=== PATIENT | male | born 1950 | race Caucasian/White ===

== ENCOUNTER 2024-05-12 06:47 | Inpatient (IN) | payer OTHER ==
[2024-05-12 07:53] LABS: #Basophils 0.03 10x3/uL (0.0-0.2); %Basophils 0.4 % (0.0-1.0); %Eosinophils 2.8 % (0.0-10.0); %Monocytes 8.4 % (0.0-10.0); %Neutrophils 75.1 % (42.0-75.0); Hematocrit 36.2 % (42.0-52.0); Hemoglobin 11.7 g/dL (14.0-18.0); Mean Corpuscular HGB CONC 32.3 g/dL (32.0-36.0); Mean Corpuscular Hemoglobin 33.4 pg (27.0-31.0); Mean Corpuscular Volume 103.4 fL (78.0-98.0); Mean Platelet Volume 9.6 fL (7.4-10.4); Platelet Count 140 10x3/uL (130-400)
[2024-05-12 08:12] LABS: ALT (SGPT) 48 U/L (8-55); AST (SGOT) 32 U/L (5-34); Albumin 3.3 g/dL (3.4-4.8); Alkaline Phosphatase 66 U/L (40-110); Anion Gap 10 mmol/L (10-20); BUN (Urea Nitrogen) 19 mg/dL (8.4-25.7); Bilirubin, Total 1.6 mg/dL (0.2-1.2); Calc. Creatinine Clearance 0 mL/min (70-130); Calcium 8.8 mg/dL (7.8-10.44); Carbon Dioxide 24 mmol/L (23-31); Chloride 116 mmol/L (98-107); Estimated GFR 90; Globulin 3.1 g/dL (2.4-3.5); Glucose 138 mg/dL (83-110); Potassium 4.6 mmol/L (3.5-5.1); Protein, Total 6.4 g/dL (5.8-8.1); Sodium 145 mmol/L (136-145)
[2024-05-12 08:16] LABS: Troponin I 0.014 ng/mL (< 0.028)
[2024-05-12] MEDS ORDERED: Cefepime 2 GM VIAL ONE (11:01)
[2024-05-12] MEDS ORDERED: Sodium Chloride 0.9% 100 ML ONE (11:01)
[2024-05-12 11:43] LABS: Troponin I Less than 0.010 ng/mL (< 0.028)
[2024-05-12] MEDS ORDERED: Ondansetron PF 4 MG/2 ML Vial IVP PRN (12:04)
[2024-05-12] MEDS ORDERED: Acetaminophen 325 MG TAB PO PRN (12:04)
[2024-05-12] MEDS ORDERED: LevoFLOXacin D5W 500 mg (100 mL) BAG ONE (12:52)
[2024-05-12 13:12] VITALS: BMI 31.2
[2024-05-12] MEDS ORDERED: Azithromycin 500 MG VIAL ONE (14:53)
[2024-05-12] MEDS ORDERED: Furosemide 40 MG (4 mL) VIAL ONE (14:54)
[2024-05-12] MEDS ORDERED: Heparin 5,000 UNITS/ML VIAL SC SCH (15:00)
[2024-05-12] MEDS: Azithromycin 500 MG in Sodium Chloride 0.9% 250 ML 250 ML IVPB SCH (16:00)
[2024-05-12] MEDS: Furosemide 40 MG (4 mL) VIAL SLOW IVP SCH (16:00)
[2024-05-12 16:38] LABS: Troponin I 0.023 ng/mL (< 0.028)
[2024-05-12] MEDS: Metoprolol Tartrate 25 MG TAB PO SCH (20:37)
[2024-05-12] MEDS: Apixaban 5 MG TAB PO SCH (20:37)
[2024-05-12] MEDS: cefTRIAXone\\ROCEPHIN 1 GM in Sodium Chloride 0.9% 100 ML IVPB SCH (23:30)
[2024-05-13 04:26] LABS: #Basophils 0.03 10x3/uL (0.0-0.2); %Basophils 0.4 % (0.0-1.0); %Eosinophils 2.4 % (0.0-10.0); %Lymphocytes 15.5 % (21.0-51.0); %Monocytes 10.8 % (0.0-10.0); %Neutrophils 70.5 % (42.0-75.0); Hematocrit 34.4 % (42.0-52.0); Hemoglobin 11.5 g/dL (14.0-18.0); Mean Corpuscular HGB CONC 33.4 g/dL (32.0-36.0); Mean Corpuscular Hemoglobin 33.5 pg (27.0-31.0); Mean Corpuscular Volume 100.3 fL (78.0-98.0); Mean Platelet Volume 9.5 fL (7.4-10.4); Platelet Count 143 10x3/uL (130-400); RBC Distribution Width 13.8 % (11.5-14.5); Red Blood Cell (RBC) Count 3.43 mill/uL (4.70-6.10)
[2024-05-13 04:55] LABS: Anion Gap 10 mmol/L (10-20); BUN (Urea Nitrogen) 16 mg/dL (8.4-25.7); Calc. Creatinine Clearance 105 mL/min (70-130); Calcium 8.8 mg/dL (7.8-10.44); Carbon Dioxide 26 mmol/L (23-31); Chloride 110 mmol/L (98-107); Estimated GFR 92; Glucose 112 mg/dL (83-110); Potassium 3.5 mmol/L (3.5-5.1); Sodium 142 mmol/L (136-145)
[2024-05-13 10:55] VITALS: BMI 31.1
[2024-05-13] MEDS: Timolol 0.5% Ophth Soln 5 ml Bottle FS SCH (22:10)
[2024-05-14 05:00] LABS: #Basophils 0.04 10x3/uL (0.0-0.2); %Basophils 0.6 % (0.0-1.0); %Eosinophils 4.3 % (0.0-10.0); %Lymphocytes 16.1 % (21.0-51.0); %Monocytes 10.5 % (0.0-10.0); %Neutrophils 68.1 % (42.0-75.0); Hemoglobin 11.8 g/dL (14.0-18.0); Mean Corpuscular HGB CONC 32.8 g/dL (32.0-36.0); Mean Corpuscular Hemoglobin 33.5 pg (27.0-31.0); Mean Corpuscular Volume 102.3 fL (78.0-98.0); Mean Platelet Volume 9.4 fL (7.4-10.4); Platelet Count 146 10x3/uL (130-400); RBC Distribution Width 13.6 % (11.5-14.5); Red Blood Cell (RBC) Count 3.52 mill/uL (4.70-6.10)
[2024-05-14 05:22] LABS: Anion Gap 12 mmol/L (10-20); BUN (Urea Nitrogen) 17 mg/dL (8.4-25.7); Calc. Creatinine Clearance 106 mL/min (70-130); Calcium 8.9 mg/dL (7.8-10.44); Carbon Dioxide 26 mmol/L (23-31); Chloride 107 mmol/L (98-107); Estimated GFR 92; Glucose 99 mg/dL (83-110); Potassium 3.3 mmol/L (3.5-5.1); Sodium 142 mmol/L (136-145)
[2024-05-14] MEDS: Timolol 0.5% Ophth Soln 5 ml Bottle FS SCH (08:52)
[2024-05-15 04:50] LABS: #Basophils 0.05 10x3/uL (0.0-0.2); %Basophils 0.8 % (0.0-1.0); %Eosinophils 6.6 % (0.0-10.0); %Lymphocytes 23.7 % (21.0-51.0); %Monocytes 11.6 % (0.0-10.0); %Neutrophils 56.8 % (42.0-75.0); Hematocrit 36.8 % (42.0-52.0); Mean Corpuscular HGB CONC 32.6 g/dL (32.0-36.0); Mean Corpuscular Hemoglobin 33.1 pg (27.0-31.0); Mean Corpuscular Volume 101.7 fL (78.0-98.0); Mean Platelet Volume 9.2 fL (7.4-10.4); Platelet Count 159 10x3/uL (130-400); RBC Distribution Width 13.4 % (11.5-14.5); Red Blood Cell (RBC) Count 3.62 mill/uL (4.70-6.10)
[2024-05-15 05:08] LABS: Anion Gap 10 mmol/L (10-20); BUN (Urea Nitrogen) 17 mg/dL (8.4-25.7); Calc. Creatinine Clearance 99 mL/min (70-130); Calcium 8.7 mg/dL (7.8-10.44); Carbon Dioxide 30 mmol/L (23-31); Chloride 107 mmol/L (98-107); Estimated GFR 91; Glucose 104 mg/dL (83-110); Potassium 3.2 mmol/L (3.5-5.1); Sodium 144 mmol/L (136-145)
[2024-05-15] MEDS: Azithromycin 250 MG in Syringe 0 ML IVPB SCH (11:29)
[2024-05-15] MEDS: Azithromycin 250 MG in Sodium Chloride 0.9% 250 ML 250 ML IVPB SCH (12:04)
[2024-05-15] MEDS: cefTRIAXone\\ROCEPHIN 1 GM in Sodium Chloride 0.9% 100 ML IVPB SCH (13:18)
[2024-05-16 05:43] LABS: #Basophils 0.06 10x3/uL (0.0-0.2); %Basophils 0.8 % (0.0-1.0); %Eosinophils 5.5 % (0.0-10.0); %Lymphocytes 18.6 % (21.0-51.0); %Monocytes 10.8 % (0.0-10.0); Hematocrit 40.4 % (42.0-52.0); Hemoglobin 13.3 g/dL (14.0-18.0); Mean Corpuscular HGB CONC 32.9 g/dL (32.0-36.0); Mean Corpuscular Hemoglobin 33.2 pg (27.0-31.0); Mean Corpuscular Volume 100.7 fL (78.0-98.0); Mean Platelet Volume 9.5 fL (7.4-10.4); Platelet Count 181 10x3/uL (130-400); RBC Distribution Width 13.1 % (11.5-14.5); Red Blood Cell (RBC) Count 4.01 mill/uL (4.70-6.10)
[2024-05-16 06:01] LABS: Anion Gap 11 mmol/L (10-20); BUN (Urea Nitrogen) 17 mg/dL (8.4-25.7); Calc. Creatinine Clearance 103 mL/min (70-130); Calcium 9.1 mg/dL (7.8-10.44); Carbon Dioxide 28 mmol/L (23-31); Chloride 106 mmol/L (98-107); Estimated GFR 93; Glucose 96 mg/dL (83-110); Potassium 3.4 mmol/L (3.5-5.1); Sodium 142 mmol/L (136-145)
[2024-05-16] MEDS: Azithromycin 250 MG in Sodium Chloride 0.9% 250 ML 250 ML IVPB SCH (09:10)
[2024-05-16] MEDS: cefTRIAXone\\ROCEPHIN 1 GM in Sodium Chloride 0.9% 100 ML IVPB SCH (09:10)
[2024-05-16] MEDS: Potassium Chloride 20 MEQ TAB PO SCH (14:51)
[2024-05-17 05:09] LABS: Anion Gap 11 mmol/L (10-20); BUN (Urea Nitrogen) 20 mg/dL (8.4-25.7); Calc. Creatinine Clearance 86 mL/min (70-130); Carbon Dioxide 30 mmol/L (23-31); Chloride 106 mmol/L (98-107); Estimated GFR 84; Glucose 143 mg/dL (83-110); Potassium 3.5 mmol/L (3.5-5.1); Sodium 143 mmol/L (136-145)
[2024-05-17] MEDS ORDERED: Azithromycin 250 MG in Syringe 0 ML IVPB SCH (09:00)
[2024-05-17] MEDS: Azithromycin 250 MG, Admixture Fee 1 EACH in Sodium Chloride 0.9% 250 ML 250 ML IVPB SCH (10:05)
[2024-05-18 05:55] LABS: Anion Gap 11 mmol/L (10-20); BUN (Urea Nitrogen) 18 mg/dL (8.4-25.7); Calc. Creatinine Clearance 97 mL/min (70-130); Calcium 9.1 mg/dL (7.8-10.44); Carbon Dioxide 31 mmol/L (23-31); Chloride 107 mmol/L (98-107); Estimated GFR 92; Glucose 108 mg/dL (83-110); Potassium 3.5 mmol/L (3.5-5.1); Sodium 145 mmol/L (136-145)
[2024-05-18] MEDS: Azithromycin 250 MG TAB PO SCH (12:24)
[2024-05-18 15:41] VITALS: BP 125/60; TEMP 98.5
[2024-05-19] MEDS ORDERED: Furosemide 40 MG TAB PO SCH (07:30)
== END 2024-05-18 18:00 | disposition home or self-care (01) | DRG 193 ==
LOC: ERS 06:47 → EEVIPCON 06:47 → 2NO 10:30 → ERHOLD 10:32 → 2NO 19:14
PROVIDERS: ADMIT Internal Medicine; ATTEND Internal Medicine
DX: J18.9 Pneumonia, unspecified organism (principal); J96.01 Acute respiratory failure with hypoxia; I25.10 Atherosclerotic heart disease of native coronary artery without angina pectoris; I48.91 Unspecified atrial fibrillation; I50.9 Heart failure, unspecified; J44.9 Chronic obstructive pulmonary disease, unspecified; G47.33 Obstructive sleep apnea (adult) (pediatric); Z95.1 Presence of aortocoronary bypass graft
CPT/HCPCS: 36415; 36416; 71045; 80048; 80053; 83880; 84484; 85025; 87040; 93005; 93306; 96365; 96366; 96375; J0456; J0692; J0696; J1940; J1956; J7050

== ENCOUNTER 2024-06-01 10:22 | Inpatient (IN) | payer OTHER ==
[2024-06-01] MEDS ORDERED: Metoprolol Tartrate 5 MG (5 mL) VIAL ONE (10:46)
[2024-06-01 11:25] LABS: ALT (SGPT) 28 U/L (8-55); AST (SGOT) 25 U/L (5-34); Albumin 3.6 g/dL (3.4-4.8); Alkaline Phosphatase 70 U/L (40-110); Anion Gap 11 mmol/L (10-20); BUN (Urea Nitrogen) 16 mg/dL (8.4-25.7); Bilirubin, Total 1.4 mg/dL (0.2-1.2); Calc. Creatinine Clearance 0 mL/min (70-130); Calcium 9.1 mg/dL (7.8-10.44); Carbon Dioxide 27 mmol/L (23-31); Chloride 110 mmol/L (98-107); Estimated GFR 91; Globulin 2.9 g/dL (2.4-3.5); Glucose 80 mg/dL (83-110); Potassium 3.9 mmol/L (3.5-5.1); Protein, Total 6.5 g/dL (5.8-8.1); Sodium 144 mmol/L (136-145)
[2024-06-01 11:26] LABS: Bacteria/HPF None Seen HPF (None Seen); Bilirubin Negative (Negative); Blood, Urine Negative (Negative); CAUTI Indications for Culture Dysuria,urgency,freq; Clarity Clear (Clear); Glucose, Urine (Dipstick) Normal (Negative); Ketone, Urine Negative (Negative); Leukocyte 25 Leu/uL (Negative); Nitrite Negative (Negative); Protein, Urine (Dipstick) Negative (Neg-Trace); RBC/HPF 0-3 HPF (0-3); Squamous Epithelial None Seen HPF (0-3); Urobilinogen Normal mg/dL (Less than 2); WBC/HPF 0-3 HPF (0-3); pH, Urine 7.5 (5.0-9.0)
[2024-06-01 11:27] LABS: #Basophils 0.03 10x3/uL (0.0-0.2); %Basophils 0.5 % (0.0-1.0); %Eosinophils 3.6 % (0.0-10.0); %Lymphocytes 32.3 % (21.0-51.0); %Monocytes 12.4 % (0.0-10.0); Hemoglobin 12.7 g/dL (14.0-18.0); Mean Corpuscular HGB CONC 34.3 g/dL (32.0-36.0); Mean Corpuscular Hemoglobin 33.4 pg (27.0-31.0); Mean Corpuscular Volume 97.4 fL (78.0-98.0); Mean Platelet Volume 10.1 fL (7.4-10.4); Platelet Count 143 10x3/uL (130-400); RBC Distribution Width 12.7 % (11.5-14.5)
[2024-06-01 11:29] LABS: Urine Culture Reflex No No
[2024-06-01 11:54] LABS: Troponin I 0.012 ng/mL (< 0.028)
[2024-06-01] MEDS ORDERED: Metoprolol Tartrate 50 MG TAB ONE (12:46)
[2024-06-01] MEDS ORDERED: Furosemide 40 MG (4 mL) VIAL ONE (12:46)
[2024-06-01] MEDS ORDERED: Acetaminophen 325 MG TAB PO PRN (14:43)
[2024-06-01] MEDS ORDERED: Senokot S 8.6-50 MG TAB PO PRN (14:43)
[2024-06-01] MEDS ORDERED: Guaifenesin DM 100-10/5 ML UDCUP PO PRN (14:43)
[2024-06-01 16:16] VITALS: BMI 29.0
[2024-06-01 17:13] LABS: Troponin I 0.017 ng/mL (< 0.028)
[2024-06-01 20:44] LABS: Troponin I 0.014 ng/mL (< 0.028)
[2024-06-01] MEDS: Timolol 0.5% Ophth Soln 5 ml Bottle FS SCH (21:11)
[2024-06-01] MEDS: Atorvastatin Calcium 40 MG TAB PO SCH (21:11)
[2024-06-01] MEDS: Terazosin HCl 1 MG CAP PO SCH (21:11)
[2024-06-01] MEDS: Polyvinyl Alcohol 1.4%/Povidone 0.6% Opth Drops EA EYE SCH (22:41)
[2024-06-02 05:06] LABS: Anion Gap 10 mmol/L (10-20); BUN (Urea Nitrogen) 21 mg/dL (8.4-25.7); Calc. Creatinine Clearance 92 mL/min (70-130); Calcium 9.2 mg/dL (7.8-10.44); Carbon Dioxide 29 mmol/L (23-31); Chloride 107 mmol/L (98-107); Estimated GFR 90; Glucose 102 mg/dL (83-110); Potassium 3.8 mmol/L (3.5-5.1); Sodium 142 mmol/L (136-145)
[2024-06-02 05:16] LABS: #Basophils 0.04 10x3/uL (0.0-0.2); %Basophils 0.8 % (0.0-1.0); %Eosinophils 4.4 % (0.0-10.0); %Lymphocytes 28.2 % (21.0-51.0); %Monocytes 14.3 % (0.0-10.0); %Neutrophils 51.9 % (42.0-75.0); Hemoglobin 11.2 g/dL (14.0-18.0); Mean Corpuscular HGB CONC 32.9 g/dL (32.0-36.0); Mean Corpuscular Volume 100.3 fL (78.0-98.0); Mean Platelet Volume 10.1 fL (7.4-10.4); Platelet Count 123 10x3/uL (130-400); Red Blood Cell (RBC) Count 3.39 mill/uL (4.70-6.10)
[2024-06-02] MEDS ORDERED: Enoxaparin 40 MG (0.4 mL) SYRINGE SC SCH (09:00)
[2024-06-02] MEDS: Rivaroxaban 10 MG TAB PO SCH (09:56)
[2024-06-02] MEDS: Furosemide 40 MG TAB PO SCH (09:56)
[2024-06-02] MEDS: Moisturizing Cream (Eucerin) 113 GM JAR TOP SCH (20:39)
[2024-06-03 13:28] VITALS: TEMP 97.4
[2024-06-03 17:55] VITALS: BP 128/76
== END 2024-06-03 17:55 | DRG 310 ==
LOC: EEVIPCON 10:22 → ERS 10:22 → 2NO 15:54
PROVIDERS: ADMIT Hospitalist; ATTEND Hospitalist
PROC: 4A00X4Z Measurement of Central Nervous Electrical Activity, External Approach (ICD-10-PCS; principal; 2024-06-02)
DX: I48.91 Unspecified atrial fibrillation (principal); I25.10 Atherosclerotic heart disease of native coronary artery without angina pectoris; I50.9 Heart failure, unspecified; Z88.1 Allergy status to other antibiotic agents; J44.9 Chronic obstructive pulmonary disease, unspecified; I11.0 Hypertensive heart disease with heart failure; E78.5 Hyperlipidemia, unspecified; I25.2 Old myocardial infarction; M19.90 Unspecified osteoarthritis, unspecified site; Z79.899 Other long term (current) drug therapy; Z95.1 Presence of aortocoronary bypass graft
CPT/HCPCS: 36415; 70450; 70553; 71045; 72125; 76376; 80048; 80053; 81001; 83880; 84484; 85025; 85379; 93005; 95700; 95711; 95957; 96374; 96375; J1940

== ENCOUNTER 2024-09-17 13:58 | Inpatient (IN) | payer OTHER ==
[2024-09-17] MEDS ORDERED: Nitroglycerin 2% Ointment 1 INCH/1 GM Packet ONE (15:35)
[2024-09-17] MEDS ORDERED: Furosemide 40 MG (4 mL) VIAL ONE (15:35)
[2024-09-17 15:52] LABS: #Basophils Less than 0.03 10x3/uL (0.0-0.2); #Eosinophils Less than 0.03 10x3/uL (0.0-0.7); %Basophils 0.2 % (0.0-1.0); %Eosinophils 0.2 % (0.0-10.0); %Lymphocytes 6.5 % (21.0-51.0); %Monocytes 1.2 % (0.0-10.0); %Neutrophils 91.7 % (42.0-75.0); Hematocrit 35.1 % (42.0-52.0); Hemoglobin 11.6 g/dL (14.0-18.0); Mean Corpuscular Hemoglobin 32.6 pg (27.0-31.0); Mean Corpuscular Volume 98.6 fL (78.0-98.0); Platelet Count 109 10x3/uL (130-400); RBC Distribution Width 14.2 % (11.5-14.5); Red Blood Cell (RBC) Count 3.56 mill/uL (4.70-6.10)
[2024-09-17 16:00] LABS: Troponin I 0.028 ng/mL (< 0.028)
[2024-09-17] MEDS ORDERED: Ipratropium/Albuterol 3 ML NEB ONE (16:03)
[2024-09-17] MEDS ORDERED: predniSONE 20 MG TAB ONE (16:12)
[2024-09-17 16:26] LABS: Anisocytosis MODERATE=16-30 cells HPF (0-5); Burr Cells MODERATE= 6-15 cells HPF (0-1); Macrocytosis MODERATE=16-30 cells HPF (0-5); Platelet Adequacy Comment Platelets Decreased; Poikilocytosis SLIGHT = 6-15 cells HPF (0-5); Polychromasia SLIGHT = 2-3 cells HPF (0-2)
[2024-09-17 16:27] LABS: ALT (SGPT) 21 U/L (Less than 45); AST (SGOT) 25 U/L (11-34); Albumin 3.7 g/dL (3.1-4.5); Alkaline Phosphatase 79 U/L (40-110); BUN (Urea Nitrogen) 19 mg/dL (8.4-25.7); Bilirubin, Total 2.3 mg/dL (0.3-1.2); Calc. Creatinine Clearance 0 mL/min (70-130); Calcium 8.9 mg/dL (7.8-10.44); Carbon Dioxide 20 mmol/L (23-31); Estimated GFR 63; Globulin 3.4 g/dL (2.4-3.5); Glucose 144 mg/dL (83-110); Protein, Total 7.1 g/dL (5.8-8.1)
[2024-09-17 16:29] LABS: Digoxin Less than 0.19 ng/mL (0.8-2.0)
[2024-09-17] MEDS ORDERED: Magnesium 2 GM/50 ML BAG (IN WATER) ONE (16:41)
[2024-09-17 16:54] LABS: Anion Gap 16 mmol/L (10-20); Chloride 110 mmol/L (98-107); Sodium 142 mmol/L (136-145)
[2024-09-18 04:14] LABS: #Basophils Less than 0.03 10x3/uL (0.0-0.2); #Eosinophils Less than 0.03 10x3/uL (0.0-0.7); %Lymphocytes 9.6 % (21.0-51.0); %Monocytes 2.7 % (0.0-10.0); %Neutrophils 87.5 % (42.0-75.0); Hematocrit 31.8 % (42.0-52.0); Hemoglobin 10.7 g/dL (14.0-18.0); Mean Corpuscular HGB CONC 33.6 g/dL (32.0-36.0); Mean Corpuscular Hemoglobin 32.2 pg (27.0-31.0); Mean Corpuscular Volume 95.8 fL (78.0-98.0); Mean Platelet Volume 10.2 fL (7.4-10.4); Platelet Count 104 10x3/uL (130-400); Red Blood Cell (RBC) Count 3.32 mill/uL (4.70-6.10)
[2024-09-18 04:32] LABS: Troponin I 0.021 ng/mL (< 0.028)
[2024-09-18 04:34] LABS: ALT (SGPT) 18 U/L (Less than 45); AST (SGOT) 21 U/L (11-34); Albumin 3.3 g/dL (3.1-4.5); Alkaline Phosphatase 72 U/L (40-110); Anion Gap 14 mmol/L (10-20); BUN (Urea Nitrogen) 23 mg/dL (8.4-25.7); Bilirubin, Total 1.4 mg/dL (0.3-1.2); Calc. Creatinine Clearance 83 mL/min (70-130); Calcium 8.6 mg/dL (7.8-10.44); Carbon Dioxide 22 mmol/L (23-31); Chloride 111 mmol/L (98-107); Estimated GFR 65; Globulin 2.8 g/dL (2.4-3.5); Glucose 165 mg/dL (83-110); Magnesium 2.1 mg/dL (1.6-2.6); Potassium 4.1 mmol/L (3.5-5.1); Protein, Total 6.1 g/dL (5.8-8.1); Sodium 143 mmol/L (136-145)
[2024-09-18] MEDS: Furosemide 40 MG (4 mL) VIAL SLOW IVP SCH (05:00)
[2024-09-18 05:29] LABS: Troponin I 0.035 ng/mL (< 0.028)
[2024-09-18] MEDS ORDERED: Albuterol 200 PUFF (6.7GM INHALER) INH PRN (08:23)
[2024-09-18] MEDS ORDERED: Metoprolol Succinate XL 100 MG ER.TAB PO SCH (09:00)
[2024-09-18] MEDS ORDERED: SALMETEROL XINAFOATE 50 MCG IH SCH (09:00)
[2024-09-18] MEDS ORDERED: Non-Formulary Item 1 EACH (Timolol Maleate/Pf [Timolol Maleate 0.5% Eye Drop] 1 EACH Drop SCH (09:00)
[2024-09-18] MEDS ORDERED: Non-Formulary Item 1 EACH (Rivaroxaban [Xarelto] 20 MG Tablet) PO SCH (09:00)
[2024-09-18] MEDS ORDERED: Enoxaparin 40 MG (0.4 mL) SYRINGE SC SCH (09:00)
[2024-09-18] MEDS ORDERED: Non-Formulary Item 1 EACH (Omeprazole [Omeprazole] 20 MG Capsule.Dr) PO SCH (09:00)
[2024-09-18] MEDS: Amiodarone 200 MG TAB PO SCH (09:21)
[2024-09-18] MEDS: Pantoprazole 40 MG DR.TAB PO SCH (09:22)
[2024-09-18] MEDS: Docusate 100 MG CAP PO SCH (09:22)
[2024-09-18] MEDS: Metoprolol Succinate XL 25 MG ER.TAB PO SCH (09:22)
[2024-09-18] MEDS: Aspirin 81 mg Enteric Coated Tablet PO SCH (09:22)
[2024-09-18] MEDS: Simethicone Chewable 80 MG TAB PO SCH (09:23)
[2024-09-18] MEDS: Timolol 0.5% Ophth Soln 5 ml Bottle EA EYE SCH (09:23)
[2024-09-18] MEDS: Rivaroxaban 10 MG TAB PO SCH (09:23)
[2024-09-18] MEDS: Acetaminophen 325 MG TAB PO PRN (13:53)
[2024-09-18 19:17] LABS: Hematocrit 34.4 % (42.0-52.0); Hemoglobin 10.9 g/dL (14.0-18.0); Mean Corpuscular HGB CONC 31.7 g/dL (32.0-36.0); Mean Corpuscular Hemoglobin 32.2 pg (27.0-31.0); Mean Corpuscular Volume 101.8 fL (78.0-98.0); Mean Platelet Volume 10.2 fL (7.4-10.4); Platelet Count 121 10x3/uL (130-400); RBC Distribution Width 14.4 % (11.5-14.5); Red Blood Cell (RBC) Count 3.38 mill/uL (4.70-6.10)
[2024-09-18 19:25] LABS: Troponin I 0.027 ng/mL (< 0.028)
[2024-09-18] MEDS: Arformoterol 15 MCG/2 ML NEB NEB SCH (20:01)
[2024-09-18] MEDS ORDERED: TERAZOSIN HCL 2 MG PO SCH (21:00)
[2024-09-18] MEDS ORDERED: METHYLCELLULOSE 500 MG PO SCH (21:00)
[2024-09-18] MEDS: Atorvastatin Calcium 40 MG TAB PO SCH (22:15)
[2024-09-18] MEDS: Terazosin HCl 1 MG CAP PO SCH (22:16)
[2024-09-18] MEDS: Methylcellulose 500 MG TAB PO SCH (22:23)
[2024-09-18 23:21] LABS: Troponin I 0.031 ng/mL (< 0.028)
[2024-09-19 04:46] LABS: Anion Gap 11 mmol/L (10-20); BUN (Urea Nitrogen) 30 mg/dL (8.4-25.7); Calc. Creatinine Clearance 88 mL/min (70-130); Calcium 8.7 mg/dL (7.8-10.44); Carbon Dioxide 25 mmol/L (23-31); Chloride 110 mmol/L (98-107); Estimated GFR 70; Glucose 124 mg/dL (83-110); Magnesium 2.1 mg/dL (1.6-2.6); Potassium 3.6 mmol/L (3.5-5.1); Sodium 142 mmol/L (136-145)
[2024-09-19 18:33] LABS: Hematocrit 32.3 % (42.0-52.0); Hemoglobin 10.5 g/dL (14.0-18.0); Mean Corpuscular HGB CONC 32.5 g/dL (32.0-36.0); Mean Corpuscular Hemoglobin 32.1 pg (27.0-31.0); Mean Corpuscular Volume 98.8 fL (78.0-98.0); Mean Platelet Volume 10.2 fL (7.4-10.4); Platelet Count 127 10x3/uL (130-400); RBC Distribution Width 14.4 % (11.5-14.5); Red Blood Cell (RBC) Count 3.27 mill/uL (4.70-6.10)
[2024-09-20 05:14] LABS: Anion Gap 13 mmol/L (10-20); BUN (Urea Nitrogen) 30 mg/dL (8.4-25.7); Calc. Creatinine Clearance 79 mL/min (70-130); Calcium 8.6 mg/dL (7.8-10.44); Carbon Dioxide 27 mmol/L (23-31); Chloride 107 mmol/L (98-107); Estimated GFR 63; Glucose 116 mg/dL (83-110); Magnesium 1.9 mg/dL (1.6-2.6); Potassium 3.6 mmol/L (3.5-5.1); Sodium 143 mmol/L (136-145)
[2024-09-20] MEDS: Senokot S 8.6-50 MG TAB PO SCH (07:58)
[2024-09-20] MEDS: Polyethylene Glycol 3350 17 GM Packet PO SCH (07:59)
[2024-09-20] MEDS: Fluticasone Propionate Nasal Spray 16 gm Bottle NASAL SCH (08:49)
[2024-09-20] MEDS: Metolazone 5 MG TAB PO SCH (12:36)
[2024-09-20] MEDS: traMADol HCl 50 MG TAB PO PRN (16:45)
[2024-09-21 04:27] LABS: Hematocrit 31.6 % (42.0-52.0); Hemoglobin 10.4 g/dL (14.0-18.0); Mean Corpuscular HGB CONC 32.9 g/dL (32.0-36.0); Mean Corpuscular Hemoglobin 32.3 pg (27.0-31.0); Mean Corpuscular Volume 98.1 fL (78.0-98.0); Mean Platelet Volume 9.9 fL (7.4-10.4); Platelet Count 123 10x3/uL (130-400); RBC Distribution Width 14.1 % (11.5-14.5); Red Blood Cell (RBC) Count 3.22 mill/uL (4.70-6.10)
[2024-09-21 04:37] LABS: Anion Gap 13 mmol/L (10-20); BUN (Urea Nitrogen) 29 mg/dL (8.4-25.7); Calc. Creatinine Clearance 80 mL/min (70-130); Calcium 8.9 mg/dL (7.8-10.44); Carbon Dioxide 30 mmol/L (23-31); Chloride 102 mmol/L (98-107); Estimated GFR 63; Glucose 132 mg/dL (83-110); Potassium 3.5 mmol/L (3.5-5.1); Sodium 141 mmol/L (136-145)
[2024-09-21] MEDS: Potassium Chloride 20 MEQ TAB PO SCH (11:10)
[2024-09-21] MEDS: Bisacodyl 5 MG TAB PO SCH (13:21)
[2024-09-21] MEDS: Selenium Sulfide 1% Shampoo 210 ML BOT TOP SCH (13:24)
[2024-09-21] MEDS: Triamcinolone 0.1% Cream 15 GM TUBE TOP PRN (20:17)
[2024-09-22 04:25] LABS: Anion Gap 13 mmol/L (10-20); BUN (Urea Nitrogen) 26 mg/dL (8.4-25.7); Calc. Creatinine Clearance 83 mL/min (70-130); Calcium 8.8 mg/dL (7.8-10.44); Carbon Dioxide 31 mmol/L (23-31); Chloride 99 mmol/L (98-107); Estimated GFR 68; Glucose 118 mg/dL (83-110); Potassium 3.6 mmol/L (3.5-5.1); Sodium 139 mmol/L (136-145)
[2024-09-23 04:14] LABS: Hematocrit 34.4 % (42.0-52.0); Hemoglobin 11.2 g/dL (14.0-18.0); Mean Corpuscular HGB CONC 32.6 g/dL (32.0-36.0); Mean Corpuscular Hemoglobin 32.3 pg (27.0-31.0); Mean Corpuscular Volume 99.1 fL (78.0-98.0); Platelet Count 128 10x3/uL (130-400); RBC Distribution Width 13.7 % (11.5-14.5); Red Blood Cell (RBC) Count 3.47 mill/uL (4.70-6.10)
[2024-09-23] MEDS: Metoprolol Succinate XL 25 MG ER.TAB PO SCH (10:02)
[2024-09-23] MEDS ORDERED: Ondansetron PF 4 MG/2 ML Vial IVP PRN (15:16)
[2024-09-23] MEDS: Potassium Chloride 20 MEQ TAB PO SCH (17:02)
[2024-09-24 04:58] LABS: Anion Gap 15 mmol/L (10-20); BUN (Urea Nitrogen) 27 mg/dL (8.4-25.7); Calc. Creatinine Clearance 66 mL/min (70-130); Carbon Dioxide 32 mmol/L (23-31); Chloride 97 mmol/L (98-107); Estimated GFR 57; Glucose 105 mg/dL (83-110); Magnesium 2.1 mg/dL (1.6-2.6); Potassium 3.5 mmol/L (3.5-5.1); Sodium 140 mmol/L (136-145)
[2024-09-24] MEDS: Potassium Chloride 20 MEQ TAB PO SCH (11:50)
[2024-09-24] MEDS ORDERED: Selenium Sulfide 1% Shampoo 210 ML BOT TOP PRN (13:38)
[2024-09-25 04:42] LABS: Anion Gap 15 mmol/L (10-20); BUN (Urea Nitrogen) 27 mg/dL (8.4-25.7); Calc. Creatinine Clearance 78 mL/min (70-130); Calcium 8.4 mg/dL (7.8-10.44); Carbon Dioxide 27 mmol/L (23-31); Chloride 100 mmol/L (98-107); Estimated GFR 70; Glucose 87 mg/dL (83-110); Magnesium 2.1 mg/dL (1.6-2.6); Potassium 3.6 mmol/L (3.5-5.1); Sodium 138 mmol/L (136-145)
[2024-09-25] MEDS: Furosemide 40 MG (4 mL) VIAL SLOW IVP SCH (05:11)
[2024-09-25] MEDS: Oseltamivir 75 MG CAP PO SCH (11:03)
[2024-09-25 13:52] VITALS: BMI 30.3
[2024-09-25] MEDS ORDERED: Bumetanide 1 MG TAB PO SCH (16:30)
[2024-09-25 17:21] LABS: ALT (SGPT) 17 U/L (Less than 45); AST (SGOT) 41 U/L (11-34); Albumin 3.1 g/dL (3.1-4.5); Alkaline Phosphatase 61 U/L (40-110); Bilirubin, Direct 0.5 mg/dL (0.1-0.3); Bilirubin, Total 1.1 mg/dL (0.3-1.2); Protein, Total 6.3 g/dL (5.8-8.1)
[2024-09-26 02:32] LABS: Chloride 101 mmol/L (98-107); Potassium 3.2 mmol/L (3.5-5.1); Sodium 140 mmol/L (136-145)
[2024-09-26 02:33] LABS: Calcium 8.2 mg/dL (7.8-10.44); Glucose 100 mg/dL (83-110)
[2024-09-26 02:35] LABS: Anion Gap 12 mmol/L (10-20); Carbon Dioxide 30 mmol/L (23-31)
[2024-09-26 02:37] LABS: BUN (Urea Nitrogen) 25 mg/dL (8.4-25.7)
[2024-09-26 02:38] LABS: #Basophils Less than 0.03 10x3/uL (0.0-0.2); %Basophils 0.5 % (0.0-1.0); %Eosinophils 4.1 % (0.0-10.0); %Lymphocytes 29.6 % (21.0-51.0); %Monocytes 17.2 % (0.0-10.0); %Neutrophils 48.1 % (42.0-75.0); Hemoglobin 10.8 g/dL (14.0-18.0); Mean Corpuscular HGB CONC 32.7 g/dL (32.0-36.0); Mean Corpuscular Hemoglobin 31.9 pg (27.0-31.0); Mean Corpuscular Volume 97.3 fL (78.0-98.0); Mean Platelet Volume 10.4 fL (7.4-10.4); Platelet Count 117 10x3/uL (130-400); RBC Distribution Width 13.5 % (11.5-14.5); Red Blood Cell (RBC) Count 3.39 mill/uL (4.70-6.10)
[2024-09-26 02:42] LABS: Calc. Creatinine Clearance 76 mL/min (70-130); Estimated GFR 69
[2024-09-26 02:45] LABS: PTT 47.8 sec (22.9-36.1)
[2024-09-26 03:10] LABS: Alkaline Phosphatase 64 U/L (40-110); Bilirubin, Total 0.9 mg/dL (0.3-1.2); Protein, Total 6.2 g/dL (5.8-8.1)
[2024-09-26 03:11] LABS: ALT (SGPT) 25 U/L (Less than 45); AST (SGOT) 53 U/L (11-34); Bilirubin, Direct 0.4 mg/dL (0.1-0.3)
[2024-09-26 05:07] LABS: Bacteria/HPF None Seen HPF (None Seen); Bilirubin Negative (Negative); Blood, Urine Trace (Negative); Clarity Clear (Clear); Glucose, Urine (Dipstick) Normal (Negative); Ketone, Urine Negative (Negative); Leukocyte 250 Leu/uL (Negative); Nitrite Negative (Negative); Protein, Urine (Dipstick) Negative (Neg-Trace); RBC/HPF 0-3 HPF (0-3); Specific Gravity, Urine 1.012 (1.002-1.036); Squamous Epithelial None Seen HPF (0-3); Urobilinogen 6 mg/dL (Less than 2); pH, Urine 6.5 (5.0-9.0)
[2024-09-26] MEDS ORDERED: Electrolyte Replacement Protocol 1 EACH FS SCH (07:30)
[2024-09-26] MEDS ORDERED: Electrolyte Replacement Protocol FS PRN (07:30)
[2024-09-26] MEDS: Magnesium 2 GM/50 ML(in water) 2 GM in Premix 1 BAG IVPB SCH (09:39)
[2024-09-26] MEDS: Potassium Chloride 20 MEQ TAB PO SCH ×2 (09:47→19:31)
[2024-09-26 09:59] LABS: Troponin I 0.054 ng/mL (< 0.028)
[2024-09-26] MEDS: Polyvinyl Alcohol 1.4%/Povidone 0.6% Opth Drops EA EYE SCH (15:12)
[2024-09-26 16:34] LABS: Troponin I 0.045 ng/mL (< 0.028)
[2024-09-26] MEDS: Magnesium Oxide 400 MG TAB PO SCH (20:31)
[2024-09-26] MEDS ORDERED: MINERAL OIL TOP SCH (21:00)
[2024-09-26] MEDS ORDERED: LANOLIN TOP SCH (21:00)
[2024-09-27 09:11] LABS: Hematocrit 35.3 % (42.0-52.0); Hemoglobin 11.6 g/dL (14.0-18.0); Mean Corpuscular HGB CONC 32.9 g/dL (32.0-36.0); Mean Corpuscular Volume 97.2 fL (78.0-98.0); Mean Platelet Volume 9.9 fL (7.4-10.4); Platelet Count 122 10x3/uL (130-400); RBC Distribution Width 13.7 % (11.5-14.5); Red Blood Cell (RBC) Count 3.63 mill/uL (4.70-6.10)
[2024-09-27 09:21] LABS: INR-International Normal Ratio 1.5; PTT 40.7 sec (22.9-36.1); Prothrombin Time 18.5 sec (12.0-14.7)
[2024-09-27 09:23] LABS: Anion Gap 14 mmol/L (10-20); BUN (Urea Nitrogen) 18 mg/dL (8.4-25.7); Calc. Creatinine Clearance 81 mL/min (70-130); Calcium 8.4 mg/dL (7.8-10.44); Carbon Dioxide 28 mmol/L (23-31); Chloride 105 mmol/L (98-107); Estimated GFR 74; Glucose 119 mg/dL (83-110); Potassium 3.5 mmol/L (3.5-5.1); Sodium 143 mmol/L (136-145)
[2024-09-27 09:34] LABS: Band 1 % (5-11); Burr Cells SLIGHT = 2-5 cells HPF (0-1); Elliptocytes SLIGHT = 2-5 cells HPF (0-1); Eosinophils 3 % (0-10); Lymphocytes 29 % (21-51); Monocytes 13 % (0-10); Neutrophil 50 % (42-75); Platelet Adequacy Comment Platelets Decreased; Reactive Lymphocytes 4 % (0-10); Vacuoles SLIGHT
[2024-09-28 04:25] LABS: #Basophils 0.03 10x3/uL (0.0-0.2); %Basophils 0.6 % (0.0-1.0); %Eosinophils 3.5 % (0.0-10.0); %Lymphocytes 34.9 % (21.0-51.0); %Monocytes 8.7 % (0.0-10.0); %Neutrophils 52.1 % (42.0-75.0); Hematocrit 35.8 % (42.0-52.0); Hemoglobin 11.6 g/dL (14.0-18.0); Mean Corpuscular HGB CONC 32.4 g/dL (32.0-36.0); Mean Corpuscular Hemoglobin 31.5 pg (27.0-31.0); Mean Corpuscular Volume 97.3 fL (78.0-98.0); Platelet Count 134 10x3/uL (130-400); RBC Distribution Width 13.5 % (11.5-14.5); Red Blood Cell (RBC) Count 3.68 mill/uL (4.70-6.10)
[2024-09-28 04:36] LABS: INR-International Normal Ratio 1.2; Prothrombin Time 15.6 sec (12.0-14.7)
[2024-09-28 04:45] LABS: Anion Gap 12 mmol/L (10-20); BUN (Urea Nitrogen) 16 mg/dL (8.4-25.7); Calc. Creatinine Clearance 87 mL/min (70-130); Calcium 8.6 mg/dL (7.8-10.44); Carbon Dioxide 27 mmol/L (23-31); Chloride 106 mmol/L (98-107); Estimated GFR 82; Glucose 100 mg/dL (83-110); Magnesium 2.1 mg/dL (1.6-2.6); Potassium 3.3 mmol/L (3.5-5.1); Sodium 142 mmol/L (136-145)
[2024-09-28 06:42] VITALS: BMI 28.5
[2024-09-29 03:59] LABS: #Basophils 0.03 10x3/uL (0.0-0.2); %Basophils 0.4 % (0.0-1.0); %Monocytes 8.2 % (0.0-10.0); %Neutrophils 65.1 % (42.0-75.0); Hematocrit 35.9 % (42.0-52.0); Hemoglobin 11.8 g/dL (14.0-18.0); Mean Corpuscular HGB CONC 32.9 g/dL (32.0-36.0); Mean Corpuscular Hemoglobin 31.8 pg (27.0-31.0); Mean Corpuscular Volume 96.8 fL (78.0-98.0); Mean Platelet Volume 9.7 fL (7.4-10.4); Platelet Count 137 10x3/uL (130-400); RBC Distribution Width 13.5 % (11.5-14.5); Red Blood Cell (RBC) Count 3.71 mill/uL (4.70-6.10)
[2024-09-29 04:13] LABS: INR-International Normal Ratio 1.2; Prothrombin Time 15.6 sec (12.0-14.7)
[2024-09-29 04:14] LABS: PTT 31.2 sec (22.9-36.1)
[2024-09-29 04:37] LABS: ALT (SGPT) 25 U/L (Less than 45); AST (SGOT) 37 U/L (11-34); Albumin 3.2 g/dL (3.1-4.5); Alkaline Phosphatase 70 U/L (40-110); Anion Gap 12 mmol/L (10-20); BUN (Urea Nitrogen) 16 mg/dL (8.4-25.7); Bilirubin, Total 1.3 mg/dL (0.3-1.2); Calc. Creatinine Clearance 70 mL/min (70-130); Calcium 8.7 mg/dL (7.8-10.44); Carbon Dioxide 28 mmol/L (23-31); Chloride 105 mmol/L (98-107); Estimated GFR 67; Globulin 3.4 g/dL (2.4-3.5); Glucose 103 mg/dL (83-110); Magnesium 2.1 mg/dL (1.6-2.6); Potassium 3.4 mmol/L (3.5-5.1); Protein, Total 6.6 g/dL (5.8-8.1); Sodium 142 mmol/L (136-145)
[2024-09-30 04:35] LABS: #Basophils Less than 0.03 10x3/uL (0.0-0.2); %Basophils 0.2 % (0.0-1.0); %Eosinophils 0.6 % (0.0-10.0); %Lymphocytes 13.8 % (21.0-51.0); %Monocytes 7.2 % (0.0-10.0); %Neutrophils 77.9 % (42.0-75.0); Hematocrit 37.3 % (42.0-52.0); Hemoglobin 12.6 g/dL (14.0-18.0); Mean Corpuscular HGB CONC 33.8 g/dL (32.0-36.0); Mean Corpuscular Hemoglobin 31.7 pg (27.0-31.0); Mean Platelet Volume 10.6 fL (7.4-10.4); Platelet Count 156 10x3/uL (130-400); RBC Distribution Width 13.4 % (11.5-14.5); Red Blood Cell (RBC) Count 3.97 mill/uL (4.70-6.10)
[2024-09-30 04:47] LABS: INR-International Normal Ratio 1.2
[2024-09-30 04:48] LABS: PTT 33.5 sec (22.9-36.1)
[2024-09-30 06:39] LABS: ALT (SGPT) 22 U/L (Less than 45); AST (SGOT) 35 U/L (11-34); Albumin 3.2 g/dL (3.1-4.5); Alkaline Phosphatase 72 U/L (40-110); Anion Gap 16 mmol/L (10-20); BUN (Urea Nitrogen) 14 mg/dL (8.4-25.7); Bilirubin, Total 1.5 mg/dL (0.3-1.2); Calc. Creatinine Clearance 77 mL/min (70-130); Calcium 8.9 mg/dL (7.8-10.44); Carbon Dioxide 24 mmol/L (23-31); Chloride 103 mmol/L (98-107); Estimated GFR 77; Globulin 3.7 g/dL (2.4-3.5); Glucose 104 mg/dL (83-110); Magnesium 2.1 mg/dL (1.6-2.6); Potassium 3.4 mmol/L (3.5-5.1); Protein, Total 6.9 g/dL (5.8-8.1); Sodium 140 mmol/L (136-145)
[2024-09-30 16:44] VITALS: BP 114/57; TEMP 97
== END 2024-09-30 09:55 | DRG 291 ==
LOC: ERS 13:58 → EEVIPCON 13:58 → OBSVTOIN 22:29 → 2SE 22:29
PROVIDERS: ADMIT Hospitalist; ATTEND Internal Medicine
DX: I11.0 Hypertensive heart disease with heart failure (principal); I50.33 Acute on chronic diastolic (congestive) heart failure; R04.2 Hemoptysis; J96.11 Chronic respiratory failure with hypoxia; I48.91 Unspecified atrial fibrillation; J10.1 Influenza due to other identified influenza virus with other respiratory manifestations; I25.10 Atherosclerotic heart disease of native coronary artery without angina pectoris; J44.9 Chronic obstructive pulmonary disease, unspecified; Z88.1 Allergy status to other antibiotic agents; Z95.1 Presence of aortocoronary bypass graft; Z98.890 Other specified postprocedural states; K21.9 Gastro-esophageal reflux disease without esophagitis; K59.00 Constipation, unspecified; L40.9 Psoriasis, unspecified; R00.1 Bradycardia, unspecified; I08.1 Rheumatic disorders of both mitral and tricuspid valves
CPT/HCPCS: 36415; 36416; 71045; 76705; 80048; 80053; 80076; 80162; 81001; 83690; 83735; 83880; 84484; 85025; 85027; 85610; 85730; 86850; 86900; 86901; 87633; 93005; 93010; 93306; 93798; 94640; 96365; 96366; 96375; J1940; J3475; J7512; J7620

== ENCOUNTER 2025-03-28 12:24 | Inpatient (IN) | payer OTHER ==
[2025-03-28 13:37] LABS: #Basophils 0.03 10x3/uL (0.0-0.2); #Eosinophils 0.26 10x3/uL (0.0-0.7); #Monocytes 0.65 10x3/uL (0.11-0.59); #Neutrophils 3.78 10x3/uL (1.40-6.50); %Basophils 0.5 % (0.0-1.0); %Eosinophils 4.8 % (0.0-10.0); %Lymphocytes 13.5 % (21.0-51.0); %Monocytes 11.9 % (0.0-10.0); %Neutrophils 69.1 % (42.0-75.0); Hematocrit 27.4 % (42.0-52.0); Hemoglobin 8.6 g/dL (14.0-18.0); Mean Corpuscular Hemoglobin 29.9 pg (27.0-31.0); Mean Corpuscular Volume 95.1 fL (78.0-98.0); Platelet Count 164 10x3/uL (130-400); Red Blood Cell (RBC) Count 2.88 mill/uL (4.70-6.10); White Blood Cell (WBC) Count 5.47 10x3/uL (4.8-10.8)
[2025-03-28] MEDS ORDERED: Dexamethasone 10 MG/ML VIAL ONE (13:43)
[2025-03-28] MEDS ORDERED: Furosemide 40 MG (4 mL) VIAL ONE (13:44)
[2025-03-28] MEDS ORDERED: Aspirin Chewable 81 MG TAB ONE (13:45)
[2025-03-28 13:53] LABS: INR-International Normal Ratio 1.4; Prothrombin Time 17.3 sec (12.0-14.7)
[2025-03-28 13:54] LABS: PTT 28.6 sec (22.9-36.1)
[2025-03-28 14:06] LABS: ALT (SGPT) 17 U/L (Less than 45); AST (SGOT) 25 U/L (11-34); Albumin 3.5 g/dL (3.1-4.5); Alkaline Phosphatase 74 U/L (40-110); Anion Gap 10 mmol/L (10-20); BUN (Urea Nitrogen) 15 mg/dL (8.4-25.7); Bilirubin, Total 1.2 mg/dL (0.3-1.2); Calc. Creatinine Clearance 0 mL/min (70-130); Calcium 8.5 mg/dL (7.8-10.44); Carbon Dioxide 27 mmol/L (23-31); Chloride 111 mmol/L (98-107); Globulin 2.9 g/dL (2.4-3.5); Glucose 122 mg/dL (83-110); Magnesium 2.1 mg/dL (1.6-2.6); Potassium 4.7 mmol/L (3.5-5.1); Sodium 143 mmol/L (136-145)
[2025-03-28 14:07] LABS: Troponin I 0.010 ng/mL (< 0.028)
[2025-03-28 15:39] LABS: CAUTI Indications for Culture Acute Hematuria; Glucose, Urine (Dipstick) Normal (Negative); Leukocyte 250 Leu/uL (Negative); Protein, Urine (Dipstick) Negative (Neg-Trace); RBC/HPF 0-3 HPF (0-3); Specific Gravity, Urine 1.011 (1.002-1.036)
[2025-03-28 15:41] LABS: Bacteria/HPF 1+ HPF (None Seen)
[2025-03-28] MEDS ORDERED: Ondansetron PF 4 MG/2 ML Vial IVP PRN (15:41)
[2025-03-28] MEDS ORDERED: Senokot S 8.6-50 MG TAB PO PRN (15:41)
[2025-03-28] MEDS ORDERED: Calcium Carbonate 500 MG ChewTAB PO PRN (15:41)
[2025-03-28 15:42] LABS: Urine Culture Reflex Yes Yes
[2025-03-28] MEDS ORDERED: Albuterol 200 PUFF (6.7GM INHALER) INH PRN (15:47)
[2025-03-29 00:08] VITALS: BMI 34.0
[2025-03-29] MEDS ORDERED: GenTeal Tears Severe Dry Eye GEL 10 GM EA EYE PRN (03:47)
[2025-03-29 04:10] LABS: #Basophils Less than 0.03 10x3/uL (0.0-0.2); #Eosinophils Less than 0.03 10x3/uL (0.0-0.7); #Monocytes 0.20 10x3/uL (0.11-0.59); #Neutrophils 2.52 10x3/uL (1.40-6.50); %Basophils 0.0 % (0.0-1.0); %Eosinophils 0.0 % (0.0-10.0); %Lymphocytes 9.9 % (21.0-51.0); %Monocytes 6.6 % (0.0-10.0); %Neutrophils 83.5 % (42.0-75.0); Hematocrit 25.7 % (42.0-52.0); Hemoglobin 7.9 g/dL (14.0-18.0); Mean Corpuscular Hemoglobin 29.4 pg (27.0-31.0); Mean Corpuscular Volume 95.5 fL (78.0-98.0); Platelet Count 138 10x3/uL (130-400); Red Blood Cell (RBC) Count 2.69 mill/uL (4.70-6.10); White Blood Cell (WBC) Count 3.02 10x3/uL (4.8-10.8)
[2025-03-29 04:39] LABS: ALT (SGPT) 15 U/L (Less than 45); AST (SGOT) 17 U/L (11-34); Albumin 3.3 g/dL (3.1-4.5); Alkaline Phosphatase 68 U/L (40-110); Anion Gap 12 mmol/L (10-20); BUN (Urea Nitrogen) 18 mg/dL (8.4-25.7); Bilirubin, Total 1.0 mg/dL (0.3-1.2); Calc. Creatinine Clearance 93 mL/min (70-130); Calcium 8.6 mg/dL (7.8-10.44); Carbon Dioxide 22 mmol/L (23-31); Chloride 109 mmol/L (98-107); Globulin 2.9 g/dL (2.4-3.5); Glucose 220 mg/dL (83-110); Magnesium 2.0 mg/dL (1.6-2.6); Potassium 4.3 mmol/L (3.5-5.1); Sodium 139 mmol/L (136-145)
[2025-03-29] MEDS: Furosemide 40 MG (4 mL) VIAL SLOW IVP SCH ×2 (05:53→13:06)
[2025-03-29] MEDS: Amiodarone 200 MG TAB PO SCH (08:09)
[2025-03-29] MEDS: Aspirin 81 mg Enteric Coated Tablet PO SCH (08:09)
[2025-03-29] MEDS: Magnesium 2 GM/50 ML(in water) 2 GM in Premix 1 BAG IVPB SCH (08:09)
[2025-03-29] MEDS ORDERED: Enoxaparin 40 MG (0.4 mL) SYRINGE SC SCH (09:00)
[2025-03-29] MEDS ORDERED: Dextrose 50% Abboject 50 ML SYRINGE SLOW IVP PRN (10:59)
[2025-03-29] MEDS ORDERED: Glucagon 1 MG/ML KIT IM PRN (10:59)
[2025-03-29] MEDS: cefTRIAXone\\ROCEPHIN 2 GM in Sodium Chloride 0.9% 100 ML IVPB SCH (12:13)
[2025-03-29] MEDS: Albumin 25% 25 GM (100 mL) BOT IVPB SCH (13:06)
[2025-03-29] MEDS: Senokot S 8.6-50 MG TAB PO SCH (20:18)
[2025-03-30 04:26] LABS: #Basophils Less than 0.03 10x3/uL (0.0-0.2); #Eosinophils 0.18 10x3/uL (0.0-0.7); #Monocytes 0.55 10x3/uL (0.11-0.59); #Neutrophils 3.74 10x3/uL (1.40-6.50); %Basophils 0.4 % (0.0-1.0); %Eosinophils 3.3 % (0.0-10.0); %Lymphocytes 17.1 % (21.0-51.0); %Monocytes 10.1 % (0.0-10.0); %Neutrophils 68.9 % (42.0-75.0); Hematocrit 26.2 % (42.0-52.0); Hemoglobin 8.1 g/dL (14.0-18.0); Mean Corpuscular Hemoglobin 29.0 pg (27.0-31.0); Mean Corpuscular Volume 93.9 fL (78.0-98.0); Platelet Count 151 10x3/uL (130-400); Red Blood Cell (RBC) Count 2.79 mill/uL (4.70-6.10); White Blood Cell (WBC) Count 5.43 10x3/uL (4.8-10.8)
[2025-03-30 04:58] LABS: Anion Gap 12 mmol/L (10-20); BUN (Urea Nitrogen) 22 mg/dL (8.4-25.7); Calc. Creatinine Clearance 86 mL/min (70-130); Calcium 8.6 mg/dL (7.8-10.44); Carbon Dioxide 27 mmol/L (23-31); Chloride 107 mmol/L (98-107); Glucose 143 mg/dL (83-110); Magnesium 2.4 mg/dL (1.6-2.6); Potassium 3.7 mmol/L (3.5-5.1); Sodium 142 mmol/L (136-145)
[2025-03-30] MEDS ORDERED: Oxymetazoline HCl 0.05% (30 ML BOT) NS PRN (09:53)
[2025-03-30] MEDS: Albumin 25% 25 GM (100 mL) BOT IVPB SCH (12:13)
[2025-03-30] MEDS: Sodium Chloride 0.65% Nasal 44 ML BOT EA NARE SCH (12:17)
[2025-03-30] MEDS: Selenium Sulfide 1% Shampoo 210 ML BOT TOP SCH (15:45)
[2025-03-30] MEDS: Acetaminophen 325 MG TAB PO PRN (16:52)
[2025-03-31 04:54] LABS: #Basophils 0.04 10x3/uL (0.0-0.2); #Eosinophils 0.22 10x3/uL (0.0-0.7); #Monocytes 0.59 10x3/uL (0.11-0.59); #Neutrophils 3.42 10x3/uL (1.40-6.50); %Basophils 0.8 % (0.0-1.0); %Eosinophils 4.3 % (0.0-10.0); %Lymphocytes 15.9 % (21.0-51.0); %Monocytes 11.6 % (0.0-10.0); %Neutrophils 67.2 % (42.0-75.0); Hematocrit 25.7 % (42.0-52.0); Hemoglobin 7.8 g/dL (14.0-18.0); Mean Corpuscular Hemoglobin 29.0 pg (27.0-31.0); Mean Corpuscular Volume 95.5 fL (78.0-98.0); Platelet Count 156 10x3/uL (130-400); Red Blood Cell (RBC) Count 2.69 mill/uL (4.70-6.10); White Blood Cell (WBC) Count 5.09 10x3/uL (4.8-10.8)
[2025-03-31 05:33] LABS: Anion Gap 15 mmol/L (10-20); BUN (Urea Nitrogen) 22 mg/dL (8.4-25.7); Calc. Creatinine Clearance 79 mL/min (70-130); Calcium 8.5 mg/dL (7.8-10.44); Carbon Dioxide 24 mmol/L (23-31); Chloride 106 mmol/L (98-107); Glucose 89 mg/dL (83-110); Magnesium 2.3 mg/dL (1.6-2.6); Potassium 4.0 mmol/L (3.5-5.1); Sodium 141 mmol/L (136-145)
[2025-03-31] MEDS: Aquaphor 10 GM TUBE TOP PRN (09:49)
[2025-03-31] MEDS: Sacubitril 24MG/Valsartan 26 MG TAB PO SCH (09:50)
[2025-03-31] MEDS: Isosorbide Mononitrate 30 MG ER.TAB.S PO SCH (09:50)
[2025-03-31] MEDS: Bisacodyl 10 MG SUPP PR SCH (09:52)
[2025-03-31] MEDS: cefTRIAXone (ROCEPHIN) 2 GM VIAL ONE (11:58)
[2025-04-01 04:26] LABS: Anion Gap 11 mmol/L (10-20); BUN (Urea Nitrogen) 20 mg/dL (8.4-25.7); Calc. Creatinine Clearance 77 mL/min (70-130); Calcium 8.4 mg/dL (7.8-10.44); Carbon Dioxide 29 mmol/L (23-31); Chloride 101 mmol/L (98-107); Glucose 107 mg/dL (83-110); Magnesium 2.2 mg/dL (1.6-2.6); Potassium 3.4 mmol/L (3.5-5.1); Sodium 138 mmol/L (136-145)
[2025-04-01 12:25] LABS: Bacteria/HPF None Seen HPF (None Seen); Glucose, Urine (Dipstick) 300 mg/dL (Negative); Leukocyte 25 Leu/uL (Negative); Protein, Urine (Dipstick) Negative (Neg-Trace); RBC/HPF 21-50 HPF (0-3); Specific Gravity, Urine 1.007 (1.002-1.036)
[2025-04-02 04:13] LABS: #Basophils 0.04 10x3/uL (0.0-0.2); #Eosinophils 0.42 10x3/uL (0.0-0.7); #Monocytes 0.62 10x3/uL (0.11-0.59); #Neutrophils 2.52 10x3/uL (1.40-6.50); %Basophils 0.9 % (0.0-1.0); %Eosinophils 9.5 % (0.0-10.0); %Lymphocytes 18.7 % (21.0-51.0); %Monocytes 14.0 % (0.0-10.0); %Neutrophils 56.9 % (42.0-75.0); Hematocrit 26.4 % (42.0-52.0); Hemoglobin 8.2 g/dL (14.0-18.0); Mean Corpuscular Hemoglobin 29.1 pg (27.0-31.0); Mean Corpuscular Volume 93.6 fL (78.0-98.0); Platelet Count 183 10x3/uL (130-400); Red Blood Cell (RBC) Count 2.82 mill/uL (4.70-6.10); White Blood Cell (WBC) Count 4.43 10x3/uL (4.8-10.8)
[2025-04-02 04:22] LABS: Anion Gap 12 mmol/L (10-20); BUN (Urea Nitrogen) 18 mg/dL (8.4-25.7); Calc. Creatinine Clearance 74 mL/min (70-130); Calcium 8.7 mg/dL (7.8-10.44); Carbon Dioxide 31 mmol/L (23-31); Chloride 99 mmol/L (98-107); Glucose 117 mg/dL (83-110); Potassium 3.6 mmol/L (3.5-5.1); Sodium 138 mmol/L (136-145)
[2025-04-02] MEDS: Spironolactone 25 MG TAB PO SCH (12:33)
[2025-04-03 10:04] LABS: #Basophils 0.04 10x3/uL (0.0-0.2); #Eosinophils 0.53 10x3/uL (0.0-0.7); #Monocytes 0.69 10x3/uL (0.11-0.59); #Neutrophils 3.35 10x3/uL (1.40-6.50); %Basophils 0.7 % (0.0-1.0); %Eosinophils 9.5 % (0.0-10.0); %Lymphocytes 16.6 % (21.0-51.0); %Monocytes 12.4 % (0.0-10.0); %Neutrophils 60.4 % (42.0-75.0); Hematocrit 31.1 % (42.0-52.0); Hemoglobin 9.5 g/dL (14.0-18.0); Mean Corpuscular Hemoglobin 28.8 pg (27.0-31.0); Mean Corpuscular Volume 94.2 fL (78.0-98.0); Platelet Count 213 10x3/uL (130-400); Red Blood Cell (RBC) Count 3.30 mill/uL (4.70-6.10); White Blood Cell (WBC) Count 5.55 10x3/uL (4.8-10.8)
[2025-04-03] MEDS: Furosemide 40 MG TAB PO SCH (10:08)
[2025-04-03 10:27] LABS: Anion Gap 16 mmol/L (10-20); BUN (Urea Nitrogen) 17 mg/dL (8.4-25.7); Calc. Creatinine Clearance 70 mL/min (70-130); Calcium 8.9 mg/dL (7.8-10.44); Carbon Dioxide 26 mmol/L (23-31); Chloride 101 mmol/L (98-107); Glucose 121 mg/dL (83-110); Potassium 4.0 mmol/L (3.5-5.1); Sodium 139 mmol/L (136-145)
[2025-04-04 16:15] VITALS: BP 103/56; TEMP 98.1
== END 2025-04-04 19:40 | DRG 291 ==
LOC: ERS 12:24 → SUATTDRO 12:24 → ERHOLD 15:41 → EEVIPCON 15:41 → 2SE 19:30
PROVIDERS: ADMIT Internal Medicine; ATTEND Internal Medicine
PROC: 30233J1 Transfusion of Nonautologous Serum Albumin into Peripheral Vein, Percutaneous Approach (ICD-10-PCS; principal; 2025-03-29)
PROC: 3E03329 Introduction of Other Anti-infective into Peripheral Vein, Percutaneous Approach (ICD-10-PCS; 2025-03-29)
DX: I11.0 Hypertensive heart disease with heart failure (principal); I50.33 Acute on chronic diastolic (congestive) heart failure; J96.01 Acute respiratory failure with hypoxia; N39.0 Urinary tract infection, site not specified; E66.9 Obesity, unspecified; J44.9 Chronic obstructive pulmonary disease, unspecified; E78.5 Hyperlipidemia, unspecified; I25.10 Atherosclerotic heart disease of native coronary artery without angina pectoris; D64.9 Anemia, unspecified; E83.42 Hypomagnesemia; I48.0 Paroxysmal atrial fibrillation; N40.0 Benign prostatic hyperplasia without lower urinary tract symptoms; K59.00 Constipation, unspecified; Z79.51 Long term (current) use of inhaled steroids; Z68.27 Body mass index [BMI] 27.0-27.9, adult; Z85.038 Personal history of other malignant neoplasm of large intestine; Z88.1 Allergy status to other antibiotic agents; Z95.1 Presence of aortocoronary bypass graft; Z98.890 Other specified postprocedural states; Z79.899 Other long term (current) drug therapy
CPT/HCPCS: 36415; 36416; 71045; 80048; 80053; 81001; 83605; 83735; 83880; 84443; 84484; 85025; 85610; 85730; 87040; 87086; 93005; 93010; 93798; 94640; 94660; 94760; 96365; 96366; 96375; J0696; J1100; J1940; J2270; J3475; J7620; P9047

== ENCOUNTER 2025-05-30 00:45 | Emergency (ER) | payer OTHER ==
[2025-05-30 03:43] LABS: #Basophils 0.03 10x3/uL (0.0-0.2); #Eosinophils 0.73 10x3/uL (0.0-0.7); #Monocytes 0.94 10x3/uL (0.11-0.59); #Neutrophils 4.11 10x3/uL (1.40-6.50); %Basophils 0.4 % (0.0-1.0); %Eosinophils 10.9 % (0.0-10.0); %Lymphocytes 12.6 % (21.0-51.0); %Monocytes 14.1 % (0.0-10.0); %Neutrophils 61.7 % (42.0-75.0); Hematocrit 25.0 % (42.0-52.0); Hemoglobin 7.6 g/dL (14.0-18.0); Mean Corpuscular Hemoglobin 26.6 pg (27.0-31.0); Mean Corpuscular Volume 87.4 fL (78.0-98.0); Platelet Count 175 10x3/uL (130-400); Red Blood Cell (RBC) Count 2.86 mill/uL (4.70-6.10); White Blood Cell (WBC) Count 6.67 10x3/uL (4.8-10.8)
[2025-05-30 04:09] LABS: ALT (SGPT) 16 U/L (Less than 45); AST (SGOT) 24 U/L (11-34); Albumin 3.0 g/dL (3.1-4.5); Alkaline Phosphatase 71 U/L (40-110); Anion Gap 15 mmol/L (10-20); BUN (Urea Nitrogen) 24 mg/dL (8.4-25.7); Bilirubin, Total 2.0 mg/dL (0.3-1.2); Calc. Creatinine Clearance 0 mL/min (70-130); Calcium 8.5 mg/dL (7.8-10.44); Carbon Dioxide 22 mmol/L (23-31); Chloride 109 mmol/L (98-107); Globulin 3.0 g/dL (2.4-3.5); Glucose 94 mg/dL (83-110); Potassium 3.7 mmol/L (3.5-5.1); Sodium 142 mmol/L (136-145)
[2025-05-30] MEDS ORDERED: Bumetanide 1 MG/4 ML VIAL IVP SCH (07:30)
[2025-05-30] MEDS ORDERED: cefTRIAXone (ROCEPHIN) 1 GM VIAL ONE (08:08)
[2025-05-30] MEDS ORDERED: Iopamidol-370 76% 500 ML MDV (1 ML CHARGE) ONE (08:37)
[2025-05-30] MEDS ORDERED: Azithromycin 500 MG VIAL ONE (08:56)
== END 2025-05-30 12:21 | disposition short-term general hospital (02) ==
LOC: EEVIPCON 00:45 → ERS 00:45
DX: I11.0 Hypertensive heart disease with heart failure (principal); I50.1 Left ventricular failure, unspecified; J18.9 Pneumonia, unspecified organism; J44.9 Chronic obstructive pulmonary disease, unspecified; I25.10 Atherosclerotic heart disease of native coronary artery without angina pectoris; I48.91 Unspecified atrial fibrillation; Z79.01 Long term (current) use of anticoagulants; Z79.899 Other long term (current) drug therapy; Z79.51 Long term (current) use of inhaled steroids
CPT/HCPCS: 36415; 71045; 71275; 80053; 83880; 84484; 85025; 85379; 93005; 94760; 96374; 96375; J0456; J0696; J2270; J2919; J3490; Q9967